=== PATIENT | female | born 1965 | race Caucasian/White ===

== ENCOUNTER 2018-03-16 16:58 | Emergency (ER) | payer OTHER | END 2018-03-16 19:49 | disposition home or self-care (01) | LOC: FTE 16:58 | DX: S92.321A Displaced fracture of second metatarsal bone, right foot, initial encounter for closed fracture (principal); S92.331A Displaced fracture of third metatarsal bone, right foot, initial encounter for closed fracture; S92.341A Displaced fracture of fourth metatarsal bone, right foot, initial encounter for closed fracture; I10 Essential (primary) hypertension; X58.XXXA Exposure to other specified factors, initial encounter; Y92.9 Unspecified place or not applicable | CPT/HCPCS: 73590; 73630; 93971; 99284-25 ==

== ENCOUNTER 2018-10-23 11:59 | Day surgery (SDC) | payer OTHER ==
[2018-10-23] MEDS ORDERED: PROPOFOL 60 ML (13:43)
[2018-10-23] MEDS ORDERED: LIDOCAINE 2% (SDV) 5 ML INJ (13:43)
[2018-10-23] MEDS ORDERED: FENTAnyl 50 MCG/ML VIAL IV (14:30)
[2018-10-23] MEDS ORDERED: ONDANSETRON 4 MG INJ IV (14:30)
[2018-10-23] MEDS ORDERED: LABETALOL HCL 20MG INJ IV (14:30)
== END 2018-10-23 16:46 | disposition home or self-care (01) ==
LOC: GIL 11:59
DX: Z12.11 Encounter for screening for malignant neoplasm of colon (principal); K29.30 Chronic superficial gastritis without bleeding; K21.0 Gastro-esophageal reflux disease with esophagitis; K64.8 Other hemorrhoids; E78.00 Pure hypercholesterolemia, unspecified; I10 Essential (primary) hypertension
CPT/HCPCS: 43239; 88305; 88312; 88313